=== PATIENT | female | born 1965 | race Caucasian/White ===

== ENCOUNTER 2022-01-04 11:44 | Emergency (ER) | payer OTHER ==
[~2022-01-04] VITALS: Ht 154.9 cm; Wt 68.1 kg
--- NOTE | 2022-01-04 11:50 | PHYS DOC ---
Past Medical History Past Medical History: Hypothyroid General Adult EDM: Chief Complaint: SEIZURE HPI: HPI: Patient is a 56 year old female who is brought in by EMS for reported seizure activity. Apparently the patient's friend had called claiming that the patient had a seizure. EMS did not witness any seizure activity or tonic-clonic activity, noted they witnessed any postictal state. The patient appears to be intoxicated, ultimately admits to drinking wine this morning. It sounds like she drinks daily, though the patient reports that she is trying to "cut back." EMS reported that the patient had an episode of a very atypical motor activity that was not concurrent with true seizure-like activity or tonic-clonic activity, and this activity lasted a few seconds, without postictal state, the patient abruptly woke up and yelled at the EMS staff in route. EMS specifically stated they had concern for possible pseudoseizure. No reported tongue biting or incontinence. No fall or head injury reported. The patient is incredibly hostile, argumentative, cursing and yelling at me and the nursing staff on arrival. She is angry that history is being taken, she is angry that we are asking social history questions, and she repeatedly accuses me and the nursing staff of "judging" her. The patient denies any history of seizure disorder. No history of alcohol withdrawal or alcohol withdrawal seizures. The patient denies any physical pain or discomfort, she is demanding to leave almost immediately. She denies headache, neck pain, back pain, denies chest pain, dyspnea, abdominal pain, nausea or vomiting. She denies dizziness, numbness or tingling or focal motor weakness. Review of Systems: Review of Systems: Constitutional: Denies fever or chills. [] HENT: Denies nasal congestion or sore throat. Denies oral trauma or bleeding. Respiratory: Denies cough or shortness of breath. [] Cardiovascular: Denies chest pain or edema. [] GI: Denies abdominal pain, nausea, vomiting : Denies urine incontinence or urinary symptoms Musculoskeletal: Denies back pain or joint pain. Denies neck pain. Integument: Denies rash. [] Neurologic: Denies headache, focal weakness or sensory changes. Reportedly abnormal motor movements and " seizure" reported prior to arrival. Denies dizziness, vertigo, head injury. Psychiatric: Anxiety, hostility, alcohol use disorder, denies SI or HI Heart Score: C/O Chest Pain: No Risk Factors: Risk Factors: DM, Current or recent (<one month) smoker, HTN, HLP, family history of CAD, obesity. Risk Scores: Score 0 - 3: 2.5% MACE over next 6 weeks - Discharge Home Score 4 - 6: 20.3% MACE over next 6 weeks - Admit for Clinical Observation Score 7 - 10: 72.7% MACE over next 6 weeks - Early Invasive Strategies Physical Exam: PE: Constitutional: Well developed, well nourished, no acute distress, non-toxic appearance. Disheveled, strong odor of alcohol on breath, appears older than stated age. HENT: Normocephalic, atraumatic, oropharynx is patent and clear, no evidence of oral trauma, mucous membranes are moist. External ears are normal bilaterally. TMs are clear bilaterally. Nares are patent and clear without rhinorrhea or epistaxis. No evidence of facial trauma, swelling or ecchymoses Eyes: PERRL, EOMI, conjunctiva normal, no discharge. Sclera are clear and anicteric. Bilateral horizontal nystagmus. Neck: Normal range of motion, no tenderness, supple, no stridor. No midline tenderness or step-offs. No meningismus. Cardiovascular:Heart rate regular rhythm, +2 radial and +2 posterior tibial pulses bilaterally. Lungs & Thorax: Bilateral breath sounds clear to auscultation [] Abdomen: Abdomen is soft, nondistended, nontender to palpation. Skin: Warm, dry, no erythema, no rash. No jaundice. No open wounds. Back: No tenderness, no CVA tenderness. [] Extremities: No tenderness, no cyanosis, no clubbing, ROM intact, no edema. No limb deformity. No calf tenderness. Neurologic: Initially, she is awake and alert, not oriented to place, she is oriented to person and her birthday, does not know the exact date today. Gag reflex is intact, cranial nerves II through XII grossly intact, 5 out of 5 motor strength all 4 extremities, sensation grossly intact. Speech is relatively slurred, appears to be intoxicated. After further observation in the ED, she is awake and alert, fully oriented x3, ambulatory with a brisk and steady gait. Psychologic: Hostile, cursing, belligerent, argumentative, appears to be intoxicated. Denies SI or HI. EKG: EKG: EKG is interpreted at 1209 Rhythm is sinus Rate is 90 bpm Union is normal No STEMI Radiology/Procedures: Radiology/Procedures: IMAGING REPORT Signed PATIENT: MANUELITO BUTLER ACCOUNT: [id number] : 1965 LOCATION: ER AGE: 56 SEX: F EXAM STATUS: REG ER ORD. PHYSICIAN: SANDRA ODEN DO REASON: seizure like activity PROCEDURE: CT HEAD WO CONTRAST PQRS Compliance Statement: One or more of the following individualized dose reduction techniques were utilized for this examination: 1. Automated exposure control 2. Adjustment of the mA and/or kV according to patient size 3. Use of iterative reconstruction technique CT HEAD WITHOUT CONTRAST History: Reason: seizure like activity Comparison: None. Procedure: Axial images are obtained of the head from the skull base through the vertex without IV contrast. Findings: The ventricles and sulci are normal for the patient's age. No mass-effect, midline shift, hemorrhage, extra-axial fluid collection, or obvious acute infarction is identified. Basilar cisterns are patent. Bone windows demonstrate no acute calvarial abnormality. There is scleral banding of the left globe. The visualized paranasal sinuses are clear. Mastoid air cells are well aerated. IMPRESSION: No acute intracranial abnormality. Electronically signed by: David Edwards MD (01/04/2022 1:15 PM) [id number] DICTATED and SIGNED BY: DAVID EDWARDS MD DATE: 01/04/22 [id number] 0 Course & Med Decision Making: Course & Med Decision Making Pertinent Labs and Imaging studies reviewed. (See chart for details) I discussed the findings, differential diagnosis and plan of care with her. She is observed in the ED for several hours. No seizure activity has been reported. What is described by EMS does not sound like true seizure activity. The patient is intoxicated with markedly elevated alcohol level. However, after observation, she is awake, alert, oriented x3, has no physical complaints, demands to leave, she denies being suicidal or homicidal. She is ambulatory with a steady gait. She has no physical complaints. ED work-up is unremarkable for any obvious acute life-threatening process. There is no indication for her to hold her against her will, no indication for further invasive exams, imaging or admission at this time based on her current clinical presentation. She reports that she has a primary care physician. She will go home with her friend, she is calling a cab to take her to her friend's house. Strict return precautions are given. Also the patient has known hypothyroidism. I explained that she needs to have this further evaluated by her primary care physician. She reports that she will do this. Rebeca Disclaimer: Rebeca Disclaimer: This electronic medical record was generated, in whole or in part, using a voice recognition dictation system. Departure Departure Impression: Primary Impression: Alcohol intoxication Qualified Codes: F10.929 - Alcohol use, unspecified with intoxication, unspecified Additional Impressions: Hostile behavior Seizure-like activity Disposition: 01 HOME / SELF CARE / HOMELESS Condition: STABLE Patient Instructions: Alcohol Intoxication, Mood Disorders, Nonepileptic Seizures, Substance Abuse-Brief Additional Instructions: Return to the ER if you are acutely injured, sustained any trauma, if you have chest pain, shortness of breath, uncontrolled vomiting, severe headache, abdominal pain, focal weakness or any other concerns. Please talk to your primary care doctor for further evaluation and treatment of your chronic health issues and your ongoing alcohol use issues. SANDRA ODEN DO Jan 04, 2022 11:50
[2022-01-04] MEDS ORDERED: IV NORMAL SALINE 1000ML BAG 1,000 ML IV ONE (12:00)
[2022-01-04 12:06] LABS: BASO # 0.1 x10^3/uL (0.0-0.2); BASO % 1 % (0-3); EOS # 0.6 x10^3/uL (0.0-0.7); EOS % 9 % (0-3); HEMATOCRIT 42.8 % (36.0-47.0); HEMOGLOBIN 14.8 g/dL (12.0-15.5); LYMPH # 2.1 x10^3/uL (1.0-4.8); LYMPH % 31 % (24-48); MEAN CORPUSCULAR HEMOGLOBIN 33 pg (25-35); MEAN CORPUSCULAR HGB CONC 35 g/dL (31-37); MEAN CORPUSCULAR VOLUME 96 fL (79-100); MONO # 0.5 x10^3/uL (0.0-1.1); MONO % 7 % (0-9); NEUT # 3.5 x10^3/uL (1.8-7.7); NEUT % 52 % (31-73); PLATELET COUNT 323 x10^3/uL (140-400); RED BLOOD COUNT 4.46 x10^6/uL (3.50-5.40); RED CELL DISTRIBUTION WIDTH 11.8 % (11.5-14.5); WHITE BLOOD COUNT 6.8 x10^3/uL (4.0-11.0)
[2022-01-04 12:27] LABS: CALCIUM 8.4 mg/dL (8.5-10.1); GFR 57.1
[2022-01-04 12:33] LABS: ALBUMIN 2.9 g/dL (3.4-5.0); ALBUMIN/GLOBULIN RATIO 0.8 (1.0-1.7); POTASSIUM 3.9 mmol/L (3.5-5.1); TOTAL BILIRUBIN 0.1 mg/dL (0.2-1.0); TOTAL PROTEIN 6.5 g/dL (6.4-8.2)
--- NOTE | 2022-01-04 13:17 | RAD ---
PQRS Compliance Statement: One or more of the following individualized dose reduction techniques were utilized for this examinat ion: 1. Automated exposure control 2. Adjustment of the mA and/or kV according to patient size 3. Use of iterative reconstruction technique CT HEAD WITHOUT CONTRAST History: Reason: seizure like activity Comparison: None. Procedure: Axial images are obtained of the head from the skull base through the vertex without IV co ntrast. Findings: The ventricles and sulci are normal for the patient's age. No mass-effect, midline shift, hemorrhage, extra-axial fluid collection, or obvious acute infarction is identified. Basilar cisterns are patent. Bone windows demonstrate no acute calvarial abnormality. There is scleral banding of the left globe. The visualized paranasal sinuses are clear. Mastoid air cells are well aerated. IMPRESSION: No acute intracranial abnormality. Electronically signed by: David Mcdonald MD (01/04/2022 1:15 PM) [id number]
[2022-01-04 13:54] LABS: AMPHETAMINE/METHAMPHETAMINE NEG (NEG); BARBITURATES NEG (NEG); BENZODIAZEPINES NEG (NEG); CANNABINOIDS POS (NEG); COCAINE NEG (NEG); METHADONE NEG (NEG); OPIATES NEG (NEG); PHENCYCLIDINE NEG (NEG)
[2022-01-04 13:55] VITALS: BP 162/116
[2022-01-04 14:02] LABS: BILIRUBIN,URINE NEGATIVE (NEG); CLARITY,URINE HAZY; COLOR,URINE STRAW; PH,URINE 6.5 (<5.0-8.0); PROTEIN,URINE 100 mg/dL (NEG-TRACE)
[2022-01-04 14:03] LABS: NITRITE,URINE NEGATIVE (NEG); UROBILINOGEN,URINE 0.2 mg/dL (0.2 mg/dL)
[2022-01-04 14:05] LABS: BACTERIA,URINE MANY /HPF (0-FEW)
--- NOTE | 2022-01-04 16:01 | EKG ---
[facility] [address] [place] [address] Test Date: 2022-01-04 Test Time: 12:07:48 Pat Name: MANUELITO BUTLER Department: Room: Gender: F Security Investigator: : 1965 Requested By: SANDRA ODEN Order Number: [id number] Reading MD: Luis Felipe Constantino Measurements Intervals [place] Rate: 90 P: 45 DC: 138 QRS: 81 QRSD: 86 T: 72 QT: 372 QTc: 459 Interpretive Statements SINUS RHYTHM NORMAL ECG RI6.02 No previous ECG available for comparison Electronically Signed On 01-07-2022 8:50:03 EVENT PLANNER by Luis Felipe Constantino
== END 2022-01-04 15:06 | disposition home or self-care (01) ==
LOC: ER 11:44
DX: R56.9 Unspecified convulsions (principal); R45.5 Hostility; E03.9 Hypothyroidism, unspecified; F10.929 Alcohol use, unspecified with intoxication, unspecified; Y90.6 Blood alcohol level of 120-199 mg/100 ml
CPT/HCPCS: 36415; 70450; 80053; 80307; 81001; 82550; 84443; 84484; 85025; 87086; 93005; 96360; 99285; G0480; J7030; 87077; 87186